=== PATIENT | female | born 1995 | race Caucasian/White ===

== ENCOUNTER 2017-06-06 21:09 | Emergency (ER) | payer OTHER ==
[2017-06-06 21:18] VITALS: BP 121/69
--- NOTE | 2017-06-06 21:41 | RADIOLOGY REPORT (SQ) ---
EXAM DESCRIPTION: ANKLE LEFT COMPLETE COMPLETED DATE/TIME: 06/06/2017 9:27 pm REASON FOR STUDY: pain after fall COMPARISON: None. NUMBER OF VIEWS: Three views. TECHNIQUE: AP, lateral, and oblique radiographic images acquired of the left ankle. LIMITATIONS: None. FINDINGS: MINERALIZATION: Normal. BONES: No acute fracture or dislocation. No worrisome bone lesions. JOINTS: No effusions. SOFT TISSUES: No soft tissue swelling. No foreign body. OTHER: No other significant finding. IMPRESSION: NEGATIVE STUDY OF THE LEFT ANKLE. NO RADIOGRAPHIC EVIDENCE OF ACUTE INJURY. TECHNICAL DOCUMENTATION: JOB ID: [id number] [employer]- All Rights Reserved Reading location - IP/workstation name: [email or web address]
--- NOTE | 2017-06-06 21:46 | ER Document Report ---
HPI - HPI Pain Level: 4 Notes: Patient is a 22-year-old female who presents to the ED complaining of left lateral ankle pain status post injury prior to arrival. Patient states that her ankle gave out on her and she twisted it. Patient states that the pain does not radiate. Patient has not been able to ambulate very well due to the pain, but has been limping. She denies any significant past medical history or drug allergies. She has not noticed any obvious swelling or bruising. No other concerns or complaints at this time. Denies any headache, fever, URI, sore throat, chest pain, palpitations, syncope, cough, shortness of breath, wheeze, dyspnea, abdominal pain, nausea/vomiting/diarrhea, urinary retention, dysuria, hematuria, numbness/tingling, muscle paralysis, or rash. - ROS Systems Reviewed and Negative: Yes All other systems reviewed and negative Past Medical History - Social History Smoking Status: Current Every Day Smoker Family History: Reviewed & Not Pertinent Vertical Provider Document - CONSTITUTIONAL Agree With Documented VS: Yes Notes: PHYSICAL EXAMINATION: GENERAL: Well-appearing, well-nourished and in no acute distress. LUNGS: Breath sounds clear to auscultation bilaterally and equal. No wheezes rales or rhonchi. HEART: Regular rate and rhythm without murmurs, rubs, gallops. Musculoskeletal: Left ankle: FROM to passive/active. Strength 4+/5 to eversion/ dorsiflexion due to pain. No obvious swelling, ecchymosis, deformity, warmth, or erythema. Achilles intact. + tenderness to the lateral malleolus and ATFL. No other bony tenderness of the foot/ankle. Extremities: No cyanosis, clubbing, or edema b/l. Peripheral pulses 2+. Capillary refill less than 3 seconds. NEUROLOGICAL: Cranial nerves grossly intact. Normal speech, normal gait. Normal sensory, motor exams PSYCH: Normal mood, normal affect. SKIN: Warm, Dry, normal turgor, no rashes or lesions noted. Course - Re-evaluation Re-evalutation: 06/06/17 21:47 Patient is an afebrile, well-hydrated, 20-year-old female who presents to the ED with left ankle pain, suspect sprain versus strain. Vitals are acceptable. PE is otherwise unremarkable for any neurovascular compromise, obvious tendon/ ligament rupture, obvious fracture/dislocation, septic joint. X-ray was unremarkable for any acute pathology. Ankle stirrup was placed today as well as crutches provided. Recommend conservative measures for symptoms. Motrin given today p.o. Recheck with your PCM in 3-5 days. Consider consult orthopedic/physical therapy. Return to the ED with any worsening/concerning symptoms otherwise as reviewed discharge. Patient is in agreement. - Vital Signs Vital signs: Temp Pulse Resp BP Pulse Ox 98.3 F 86 18 121/69 98 06/06/17 21:16 06/06/17 21:16 06/06/17 21:16 06/06/17 21:16 06/06/17 21:16 Discharge - Discharge Clinical Impression: Left ankle pain Qualifiers: Chronicity: acute Qualified Code(s): M25.572 - Pain in left ankle and joints of left foot Condition: Stable Disposition: HOME, SELF-CARE Instructions: Ankle Stirrup Splint ([facility]), Sprained Ankle ([facility]), Use of Crutches ([facility]) Additional Instructions: Rest, Ice, Compression, Elevation Use crutches/splint as directed Tylenol/ibuprofen as needed Light stretches daily Strength exercises as able Moist heat and massage may help F/u with your PCP in 3-5 days for a recheck Consider consult(s) with Orthopedics/physical therapy for ongoing/worsening symptoms Return to the ED with any worsening symptoms and/or development of fever, headache, chest pain, palpitations, syncope, shortness of breath, trouble breathing, abdominal pain, n/v/d, muscle weakness/paralysis, numbness/tingling, swelling, redness, or other worsening symptoms that are concerning to you. Prescriptions: Naproxen 500 mg PO BID PRN #30 tablet PRN Reason: Forms: Smoking Cessation Education Referrals: [facility] [Provider Group] - Follow up as needed
[2017-06-06] MEDS ORDERED: IBUPROFEN 600 MG TABLET PO ONE (21:49)
== END 2017-06-06 22:03 | disposition home or self-care (01) ==
LOC: ER 21:09
DX: M25.572 Pain in left ankle and joints of left foot (principal); X50.0XXA Overexertion from strenuous movement or load, initial encounter; F17.200 Nicotine dependence, unspecified, uncomplicated
CPT/HCPCS: 99283; 73610; L4350

== ENCOUNTER 2017-07-06 13:10 | Emergency (ER) | payer OTHER ==
--- NOTE | 2017-07-06 13:35 | ER Document Report ---
ED Medical Screen (RME) - General Chief Complaint: Psych Problem Stated Complaint: IVC W/PAPERS Time Seen by Provider: 07/06/17 13:31 Notes: Patient referred from [place] today on involuntary commitment papers. Patient apparently stated to psychiatrist that the [place] that she was having suicidal ideations. She states she does not currently feel suicidal but did previously. She denies any current auditory or visual hallucinations. TRAVEL OUTSIDE OF THE [place] IN LAST 30 DAYS: No - Related Data Allergies/Adverse Reactions: No Known Allergies Allergy (Verified 07/06/17 13:25) Past Medical History - Social History Chew tobacco use (# tins/day): No Frequency of alcohol use: None Drug Abuse: None Renal/ Medical History: Denies: Hx Peritoneal Dialysis
[2017-07-06 14:24] LABS: ABSOLUTE BASOPHILS # (AUTO) 0.1 10^3/uL (0.0-0.2); ABSOLUTE EOSINOPHILS # (AUTO) 0.1 10^3/uL (0.0-0.6); ABSOLUTE LYMPHOCYTES (AUTO) 1.7 10^3/uL (0.5-4.7); ABSOLUTE MONOCYTES (AUTO) 0.7 10^3/uL (0.1-1.4); EOSINOPHILS % (AUTO) 0.8 % (0-6); HEMATOCRIT 42.5 % (36.0-47.0); HEMOGLOBIN 14.7 g/dL (12.0-15.5); LYMPHOCYTES % (AUTO) 26.7 % (13-45); MEAN CORPUSCULAR HEMOGLOBIN 29.8 pg (27.0-33.4); MEAN CORPUSCULAR HGB CONC 34.6 g/dL (32.0-36.0); MEAN CORPUSCULAR VOLUME 86 fl (80-97); MONOCYTES % (AUTO) 10.3 % (3-13); PLATELET COUNT 282 10^3/uL (150-450); RED BLOOD COUNT 4.94 10^6/uL (3.72-5.28); SEGMENTED NEUTROPHILS % (AUTO) 61.2 % (42-78); TOTAL CELLS COUNTED % (AUTO) 100 %; WHITE BLOOD COUNT 6.5 10^3/uL (4.0-10.5)
[2017-07-06 14:38] LABS: APPEARANCE,URINE CLEAR; BILIRUBIN,URINE NEGATIVE (NEGATIVE); COLOR,URINE STRAW; GLUCOSE, URINE NEGATIVE (NEGATIVE); KETONES,URINE NEGATIVE (NEGATIVE); LEUKOCYTE ESTERASE,URINE NEGATIVE (NEGATIVE); NITRITE,URINE NEGATIVE (NEGATIVE); PROTEIN,URINE NEGATIVE (NEGATIVE); URINE SPECIFIC GRAVITY 1.009; UROBILINOGEN,URINE NEGATIVE mg/dL (<2.0)
[2017-07-06 14:41] LABS: ANION GAP 12 (5-19); BLOOD UREA NITROGEN 10 mg/dL (7-20); CALCIUM 9.6 mg/dL (8.4-10.2); CARBON DIOXIDE 29 mmol/L (22-30); CHLORIDE 105 mmol/L (98-107); GLUCOSE 97 mg/dL (75-110); POTASSIUM 4.5 mmol/L (3.6-5.0)
[2017-07-06 14:42] LABS: ACETAMINOPHEN < 10 ug/mL (10-30); ALANINE AMINOTRANSFERASE 29 U/L (9-52); ALBUMIN 4.4 g/dL (3.5-5.0); ALCOHOL < 10 mg/dL (NONE DETECTED); ALKALINE PHOSPHATASE 64 U/L (38-126); ASPARTATE AMINO TRANSFERASE 21 U/L (14-36); BILIRUBIN,DIRECT 0.2 mg/dL (0.0-0.4); BILIRUBIN,TOTAL 1.1 mg/dL (0.2-1.3); SALICYLATE < 1.0 mg/dL (2.0-20.0); TOTAL PROTEIN 7.4 g/dL (6.3-8.2)
[2017-07-06 14:54] LABS: URINE AMPHETAMINES SCREEN NEGATIVE; URINE BARBITURATES SCREEN NEGATIVE; URINE BENZODIAZEPINES SCREEN NEGATIVE; URINE COCAINE SCREEN NEGATIVE; URINE MARIJUANA (THC) SCREEN NEGATIVE; URINE METHADONE SCREEN NEGATIVE; URINE PHENCYCLIDINE SCREEN NEGATIVE
[2017-07-06 16:48] VITALS: BP 126/73
--- NOTE | 2017-07-06 16:56 | PSYCHOLOGICAL NOTE ---
Psych Note - Psych Note Psych Note: Reason for consult: Suicidal ideation Eval: 4:15 pm Final Disposition 4:45 pm Contact Permissions: Patient's Elijah Smith [id number] Patient is a 22-year-old female. Patient reports she was discharged medically from the last year. Patient reports she went to the [facility] today to ask for medication from the tele-psych. Patient reports the nurse practitioner there was asking her questions that were typical suicide screen and she stated her history of attempts which occurred last year. Patient reports she told the practitioner she was in and out of outpatient from March 2016 until August 2016 for depression and posttraumatic stress disorder. Patient reports she was confused as to why she was sent to the hospital and when she called her her was surprised because he knew she was not suicidal. Patient reports that she told the practitioner she always has thoughts but she would never act on those thoughts because the thought of leaving her and dogs stop her, she would not attempt because now that she is out of the [employer] she has a good support system with her and best friend. Patient stated "I do not feel like I need to be here I have my animals to take care of I have things keeping me on my feet I need to get to school on the fifth". Collateral information patient's Jose (present) Patient's reports that when he found out she was being transported to the hospital he was surprised. Patient's reports he was not concerned for her safety and has never thought she was going to hurt herself recently. Patient's confirmed everything that patient said was true. 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 Patient's reports that they have a lot of future plans. Patient's reports that he does have a firearm but he is the only one who has access to the firearm because it is locked up. Patient's reports that he will safety plan in the home to remove any access to firearm and assist patient and medication administration. Patient's reports that they live out in town and [facility] Patient's reports he knew today 's visit was just for medications. Collateral information patient's physician Dr. Silverio Patient's physician reported she will contact the patient to set up an appointment that works for them. Patient's physician reports a nurse practitioner did the involuntary commitment and she signed it for them without being fully aware of what was on the involuntary commitment. Patient's physician reports the nurse practitioner Alee will contact the patient to discuss today's visit. Diagnosis: Per patient report 309.81 (F43.10) posttraumatic stress disorder Per patient report 296.25 (F32.4) major depressive disorder currently in partial remission Impression/plan: Recommendation to rescind involuntary commitment due to patient not meeting criteria [place] GS 122C. Patient is psychiatrically cleared for discharge. Clinician observed information on the involuntary commitment and note that was faxed over to psych was an event that occurred last year ( March 2016, and then again in November 2016). Clinician observed when that event occurred patient had an inpatient psychiatric stay and received outpatient therapy upon discharge. Clinician observed there was a misunderstanding between information shared between patient and her nurse practitioner. Clinician contacted [facility] to clarify information provided, Dr. Silverio looked up the information and verified with clinician to coordinate care. Recommendation for patient to follow-up with the affairs clinic. Attending physician in agreement with plan. Consulted with Dr. Bonilla regarding the management and care of patient.
--- NOTE | 2017-07-06 17:05 | ER Document Report ---
ED General - General Chief Complaint: Psych Problem Stated Complaint: IVC W/PAPERS Time Seen by Provider: 07/06/17 13:31 TRAVEL OUTSIDE OF THE [place] IN LAST 30 DAYS: No - HPI Patient complains to provider of: Psychiatric evaluation Notes: Patient coming in for psychiatric evaluation. [facility] patient explained to the provider that she has had suicidal ideation in the past therefore was placed on IVC paperwork and referred to the ER. By my evaluation patient states that she has not had any suicidal ideation for quite some time does have a history long-standing of depression. Patient otherwise denies any suicidal thoughts or suicidal plan at this time. Denies any fever chills nausea vomiting denies any changes in her social situation. Patient states she does have a friend along with her that check in on her frequently. Patient is confused why she was placed on IVC paperwork. - Related Data Allergies/Adverse Reactions: No Known Allergies Allergy (Verified 07/06/17 13:25) Past Medical History - Social History Smoking Status: Never Smoker Chew tobacco use (# tins/day): No Frequency of alcohol use: None Drug Abuse: None Family History: Reviewed & Not Pertinent Patient has suicidal ideation: - pt refuses to answer Patient has homicidal ideation: - pt refuses to answer Renal/ Medical History: Denies: Hx Peritoneal Dialysis Psychiatric Medical History: Reports: Hx Depression Review of Systems - Review of Systems Constitutional: No symptoms reported EENT: No symptoms reported Cardiovascular: No symptoms reported Respiratory: No symptoms reported Gastrointestinal: No symptoms reported Genitourinary: No symptoms reported Female Genitourinary: No symptoms reported Musculoskeletal: No symptoms reported Skin: No symptoms reported Hematologic/Lymphatic: No symptoms reported Neurological/Psychological: Suicidal ideation -: Yes All other systems reviewed and negative Physical Exam - Vital signs Vitals: Temp Pulse Resp BP Pulse Ox 98.1 F 84 16 126/73 H 100 07/06/17 13:19 07/06/17 13:19 07/06/17 13:19 07/06/17 13:19 07/06/17 13:19 Interpretation: Normal - General General appearance: Appears well, Alert - HEENT Head: Normocephalic, Atraumatic Eyes: Normal Pupils: PERRL - Respiratory Respiratory status: No respiratory distress Chest status: Nontender Breath sounds: Normal Chest palpation: Normal - Cardiovascular Rhythm: Regular Heart sounds: Normal auscultation Murmur: No - Abdominal Inspection: Normal Distension: No distension Bowel sounds: Normal Tenderness: Nontender Organomegaly: No organomegaly - Back Back: Normal, Nontender - Extremities General upper extremity: Normal inspection, Nontender, Normal color, Normal ROM , Normal temperature General lower extremity: Normal inspection, Nontender, Normal color, Normal ROM , Normal temperature, Normal weight bearing. No: Lesley's sign - Neurological Neuro grossly intact: Yes Cognition: Normal Orientation: AAOx4 [place] Coma Scale Eye Opening: Spontaneous [place] Coma Scale Verbal: Oriented [place] Coma Scale Motor: Obeys Commands [place] Coma Scale Total: 15 Speech: Normal Motor strength normal: LUE, RUE, LLE, RLE Sensory: Normal - Psychological Associated symptoms: Normal affect, Normal mood - Skin Skin Temperature: Warm Skin Moisture: Dry Skin Color: Normal Course - Re-evaluation Re-evalutation: 07/06/17 22:05 Patient is medically cleared evaluated by our psychiatric team. Patient not found found to meet criteria. I agree with this assessment plan resources were given to the patient patient to follow-up with her outpatient providers. - Vital Signs Vital signs: Temp Pulse Resp BP Pulse Ox 98.1 F 84 16 126/73 H 100 07/06/17 13:19 07/06/17 13:19 07/06/17 13:19 07/06/17 13:19 07/06/17 13:19 - Laboratory Result Diagrams: 07/06/17 14:05 07/06/17 14:05 Laboratory results interpreted by me: 07/06/17 14:05 Sodium 146.0 H Salicylates < 1.0 L Acetaminophen < 10 L Discharge - Discharge Clinical Impression: Depression, major, recurrent, in remission Condition: Stable Disposition: HOME, SELF-CARE Additional Instructions: DEPRESSION: Your evaluation reveals that you have mental depression. While symptoms may be vague, they often include disturbance of sleep, fatigue, loss of appetite , and general loss of interest in life. While depression may be a side effect of drugs, or a reaction to a major change in your life, many cases have no known cause. If depression is acute, and related to a major loss in your life, you can expect it to clear completely with time. If you have been depressed a long time , are prone to repeated bouts of depression or low mood, or have been thinking of suicide, get help. Depression can be treated with anti-depressant medication and counselling. Long-term depression will often take a few weeks to clear, even with appropriate medication. Follow-up care is important. SUICIDAL IDEATION: Suicidal ideation is a common medical term for thoughts about suicide, which may be as detailed as a formulated plan, without the suicidal act itself. Although most people who undergo suicidal ideation do not commit suicide, some go on to make suicide attempts. The range of suicidal ideation varies greatly from fleeting to detailed planning, role playing, and unsuccessful attempts. While thoughts about suicide are common, most people do not carry out serious actions to commit suicide. Based upon your evaluation and discussion with you, we do not believe you are currently at risk to act upon your thoughts of suicide. You have agreed to return to the Emergency Department, at any time , if you feel inclined to act upon your suicidal thoughts. Post-Traumatic Stress Disorder You seem to have post-traumatic stress disorder (PTSD). PTSD can cause chronic anxiety, sleeping problems, social withdrawal, and drug abuse. It can occur following a traumatic personal experience such as an accident, rape, assault, or of a loved one, or after experiencing a war or natural disaster. Symptoms may be delayed for days or even years. Emotional numbing, the inability to express grief, is usually the earliest sign. There may be apathy or agitation, aggression, and inability to perform ordinary tasks. Often there are frightening nightmares and sudden, intruding memories of the trauma. Panic attacks and feelings of guilt are common. Alcohol and drug use make post- traumatic stress symptoms worse. Medication may be temporarily necessary to combat anxiety, panic attacks, and depression. Medicine should not be considered a "cure." You must deal with the trauma and prepare to go on. Group therapy is often helpful. This helps you "talk through" the problem with others who share your symptoms. We can provide you with an appropriate referral. FOLLOW-UP CARE: While in the Emergency Department you received a mental health evaluation, based on the assessment it was determined your symptoms can be managed by an outpatient therapist. Mental health coordinated with your provider at the [facility] who stated they will contact you to set up a follow up appointment that works for you. We also coordinated with your Elijah Hollingsworth, who stated he was safety plan in the home, you both agreed to locking up the firearms removing access. You stated you had thoughts , without an intent or plan, however these safety precautions are recommended until you have received an additional assessment at your follow up appointment. Referrals: [facility] [Provider Group] - Follow up in 3-5 days
--- NOTE | 2017-07-06 22:26 | EKG REPORT ---
SEVERITY:- NORMAL ECG - SINUS RHYTHM : Confirmed by: Donna Okeefe 06-Jul-2017 22:25:36
== END 2017-07-06 17:34 | disposition home or self-care (01) ==
LOC: ER 13:10
DX: F43.10 Post-traumatic stress disorder, unspecified (principal); F32.4 Major depressive disorder, single episode, in partial remission; R45.851 Suicidal ideations
CPT/HCPCS: 36415; 80053; 80307; 81001; 81025; 85025; 93005; 93010; 99285